=== PATIENT | female | born 1945 | race Caucasian/White ===

== ENCOUNTER 2019-10-17 10:13 | Inpatient (IN) ==
[2019-10-17 10:38] LABS: URINE SOURCE CLEAN CATCH
[2019-10-17 10:51] LABS: BILIRUBIN URINE NEGATIVE (NEGATIVE); COLOR YELLOW; GLUCOSE URINE NEGATIVE (NEGATIVE); KETONE URINE NEGATIVE (NEGATIVE); LEUKOCYTES URINE MODERATE (NEGATIVE); NITRITE URINE NEGATIVE (NEGATIVE); PROTEIN URINE TRACE mg/dL (NEGATIVE); SP GRAVITY URINE 1.038; TURBIDITY URINE CLEAR (CLEAR)
[2019-10-17 11:04] LABS: BLOOD URINE NEGATIVE (NEGATIVE); UROBILINOGEN URINE 3 mg/dL (NORMAL)
[2019-10-17 11:05] LABS: UR EPITHELIAL CELLS >10 /HPF (<10); URINE BACTERIA NEGATIVE /HPF; URINE RBC <10 /HPF (<10)
[2019-10-17] MEDS ORDERED: LEVAQUIN 500 MG/D5W 500 MG/100 ML IVPB IV ONE (11:34)
[2019-10-17] MEDS ORDERED: NS 1,000 ML IV ONE (11:34)
[2019-10-17 12:21] LABS: BASO# 0.02 X1000 (0.0-0.2); BASO% 0.2 % (0.0-0.8); EOS# 0.54 X1000 (0.0-0.7); EOS% 4.6 % (0.0-10.0); HEMATOCRIT 43.8 % (37.0-47.0); HEMOGLOBIN 13.7 g/dL (12.0-16.0); IMM GRAN# 0.08 X1000 (0.0-0.04); IMM GRAN% 0.7 % (0.0-0.5); LYMPH# 1.05 X1000 (1.2-3.4); MCH 27.1 PG (27-31); MCHC 31.3 g/dL (33-37); MCV 86.7 FL (81-99); MONO# 0.72 X1000 (0.11-0.59); MONO% 6.1 % (1.7-9.3); MPV 9.7 FL (7.4-10.4); NEUT# 9.31 X1000 (1.4-6.5); NEUT% 79.4 % (42.2-75.2); PLT 261 X1000 (130-400); RBC 5.05 XMIL (4.2-5.4); RDW 15.5 % (11.5-14.5); WBC 11.72 X1000 (4.8-10.8)
--- NOTE | 2019-10-17 12:50 | Diag Imaging Result Doc PS360 ---
CT ABDOMEN/PELVIS W/O CONTRAST - 10/17/2019 INDICATION: flank pain COMPARISON: 06/11/2017 FINDINGS: There is tree-in-bud nodular infiltrate in both lung bases similar to the prior exam. This is compatible with chronic atypical pneumonia or recurrent aspiration pneumonia. There is a large hiatal hernia similar to prior. There is cardiomegaly. There is severe calcification of the mitral valve annulus. No radiodense renal stones. No hydronephrosis or hydroureter. There are stable cholecystectomy clips. There is severe fatty atrophy of the pancreas. Abdominal organs are otherwise normal. There is moderate diffuse constipation. No bowel obstruction or inflammation. There is severe diverticulosis of the descending and sigmoid colon. Uterus is absent. Urinary bladder and rectum are normal. There is a grossly stable large fat-containing right inguinal hernia. 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 There are moderate degenerative changes of the spine. No acute or suspicious bony lesion. IMPRESSION: 1. Constipation. Diverticulosis coli. 2. Negative for renal stone disease. 3. Chronic atypical pneumonia or aspiration in the lung bases. Cardiomegaly. This exam was performed using automated exposure control, adjustment of mA or kV according to patient size, and/or use of iterative reconstruction technique Electronically signed by Dnog Cutler 10/17/2019 12:48 PM
[2019-10-17 12:52] LABS: AGAP 13; ALB/GLOB RATIO 1.9; ALBUMIN 4.4 g/dL (3.5-5.0); ALKALINE PHOSPHATASE 68 U/L (32-104); BUN 17 mg/dL (8-22); CALCIUM 9.6 mg/dL (8.8-10.2); CHLORIDE 99 mmol/L (98-107); COSMO 278; CREATININE 0.8 mg/dL (0.5-0.9); ESTIMATED GFR > 60; GLUCOSE 113 mg/dL (70-104); GOT 15 U/L (10-30); GPT 13 U/L (10-36); POTASSIUM 4.2 mmol/L (3.5-5.1); SODIUM 138 mmol/L (136-145); TCO2 26 mmol/L (25-35); TOTAL BILIRUBIN 0.27 mg/dL (0.20-1.00); TOTAL PROTEIN 6.7 g/dL (6.3-8.3)
[2019-10-17] MEDS ORDERED: TORADOL IV ONE (13:31)
--- NOTE | 2019-10-17 13:50 | Diag Imaging Result Doc PS360 ---
CHEST-1 VIEW - 10/17/2019 INDICATION: possible pneumonia COMPARISON: 06/29/2019 FINDINGS: Stable cardiomegaly. There are increasing peribronchial markings in both lung bases consistent with bronchitis and probable bronchopneumonia. There is also pulmonary vascular congestion. No pneumothorax or significant pleural effusion. IMPRESSION: Cardiomegaly and pulmonary vascular congestion. Worsening bronchitis and probable mild bronchopneumonia in both lung bases. Electronically signed by Dong Cutler 10/17/2019 1:48 PM
--- NOTE | 2019-10-17 15:41 | PROVIDER DOCUMENTATION ---
This chart was entered by Janet Ackerman Scribe, acting as scribe for Mikal Sandoval MD. HPI-Female /OB/Breast - General Chief Complaint: Flank Pain Stated Complaint: LOWER ABD & BACK PAIN Time Seen by Provider: 10/17/19 11:22 Source: reports: patient Allergies/Adverse Reactions: Patient Allergies Allergy/AdvReac Type Severity Reaction Status Date / Time cefazolin [From Kefzol] Allergy RASH Verified 03/24/18 13:22 Iodinated Contrast Media Allergy RASH Verified 03/24/18 13:22 [IV Dye] metformin Allergy ABDOMINAL Verified 03/24/18 13:22 PAIN Sulfa (Sulfonamide Allergy RASH Verified 03/24/18 13:22 Antibiotics) terbutaline [From Brethine] Allergy RASH Verified 03/24/18 13:22 tetracycline Allergy SHORTNESS Verified 03/24/18 13:22 OF BREATH Home Medications: Home Medication List Medication Instructions Recorded Confirmed Last Taken Type Albuterol 2.5MG/Ipratrop 0.5MG 1 vial INH 4X11/23/17 03/28/18 03/28/18 05:00 History [Duoneb (A & A)] 1 Budesonide/Formoterol Fumarate 2 puff INH BID 11/23/17 03/28/18 03/28/18 05:00 History [Symbicort 160-4.5 Mcg Inhaler] 2 Diltiazem HCl [Diltiazem 24Hr ER 180 mg PO DAILY 11/23/17 03/28/18 03/28/18 05:30 History (LA)] Fluticasone Propionate [Flonase 2 puff NS BID 11/23/17 03/28/18 03/25/18 History Allergy Relief] 2 Losartan Potassium 100 mg PO DAILY 11/23/17 03/28/18 03/27/18 08:00 History 100 Montelukast [Singulair] 10 mg PO DAILY 11/23/17 03/28/18 03/27/18 21:00 History 10 Omeprazole 20 mg PO DAILY 11/23/17 03/28/18 03/28/18 05:30 History 20 Prednisone 5 mg PO DAILY 11/23/17 03/28/18 03/28/18 05:30 History 5 Simvastatin 20 mg PO DAILY 11/23/17 03/28/1818 21:00 History 20 Theophylline E.r. [Fermin-Dur] 300 mg PO DAILY 11/23/17 03/28/18 03/28/18 05:30 History 300 Aspirin 81 mg PO DAILY 11/25/17 03/28/18 03/16/18 History 81 Docusate Sodium [Stool Softener] 100 mg PO BID 03/24/18 03/28/18 03/28/18 05:30 History 100 Ipratropium/Albuterol INH 1 puff INH BID 03/24/18 03/28/18 Unknown History [Combivent Respimat Inhaler] Hydrocodone/APAP 5 mg/325 mg 1 each PO Q4H PRN #20 tablet 03/28/18 Unknown Rx [[place]-5] Ondansetron HCl [Zofran] 4 mg PO Q4H PRN #10 tablet 03/28/18 Unknown Rx - History of Present Illness-Female /OB Nature of Presenting Problem: Patient is a 73 year old female who presents with RLQ abdominal pain. States abdominal pain radiates to bilateral flank. Reports nausea with pain. Denies fe ankur. States she has been taking Keflex TID for 1 week. Does patient report she is ?: No Location of complaint: reports: RLQ Radiation: reports: right flank, left flank Quality of Pain: reports: aching Severity in ED: reports: mild Onset/Duration: reports: 1 week ago Timing: reports: still present, getting worse Context/Activities at Onset: reports: light activity Associated Symptoms: reports: nausea Similar Symptoms Previously?: Yes Recently seen or treated by another doctor?: Yes Review of Systems - Adult - REVIEW OF SYSTEMS - ADULT Constitutional: reports: no symptoms reported Eyes: reports: no symptoms reported Ears, Nose, Mouth & Throat: reports: no symptoms reported Cardiovascular: reports: no symptoms reported Respiratory: reports: no symptoms reported Gastrointestinal: reports: see HPI, abdominal pain (RLQ), nausea. denies: vomiting Genitourinary: reports: see HPI, flank pain (bilateral). denies: hematuria, urinary retention Musculoskeletal: reports: no symptoms reported Integumentary: reports: no symptoms reported Neurological: reports: no symptoms reported Psychiatric: reports: no symptoms reported Endocrine: reports: no symptoms reported Hematologic/Lymphatic: reports: no symptoms reported Allergic/Immunologic: reports: no symptoms reported All Other Systems: Reviewed and Negative Past History - Adult - PAST MEDICAL HISTORY-ADULT Review of Records: reports: Old Records Reviewed, Nursing Assessment Review, Medications Reviewed, Social history reviewed & non-contributory. Major Childhood Illnesses: reports: denies history Cardiovascular: reports: HTN Respiratory: reports: asthma, sleep apnea Gastrointestinal: reports: denies history Obstetrical/Gynecological: reports: denies history Genitourinary: reports: denies history Musculoskeletal: reports: denies history Neurological: reports: denies history Endocrine/Immune: reports: Diabetes Other Conditions: reports: denies history - PRIOR SURGERIES/PROCEDURES Surgical/Procedure History: reports: appendectomy, cholecystectomy, hysterectomy - IMMUNIZATION STATUS Childhood Immunizations: See Nurse Assessment Flu Vaccine: See Nurse Assessment - FAMILY HISTORY Family History: reviewed, not pertinent - SOCIAL HISTORY Smoking: denies Substance Use: denies Living Situation: family Physical Exam-General - PHYSICAL EXAM-ADULT Initial Vital Signs Reviewed: Yes - CONSTITUTIONAL General Appearance: alert, no apparent distress. negative: lethargic - HEAD, EARS, NOSE, MOUTH & THROAT HENMT: normocephalic/atraumatic, moist mucous membranes. negative: angioedema - RESPIRATORY Respiratory: chest non-tender, lungs clear, normal breath sounds. negative: rales - CARDIOVASCULAR Cardiovascular: normal peripheral pulses, regular rate, rhythm. negative: tachycardia - GASTROINTESTINAL (ABDOMEN) Abdominal Exam: normal bowel sounds, soft, tenderness (RUQ and RLQ). negative: distended - MUSCULOSKELETAL Back Exam: CVA tenderness (bilateral). negative: ecchymosis, vertebral tenderness - SKIN Integumentary: normal color, normal turgor, warm/dry. negative: rash - NEUROLOGIC Neurologic: grossly normal. negative: aphasia, facial droop - PSYCHIATRIC Psych/Mental Status: normal mood/affect, oriented x 3. negative: paranoid Progress - PLAN OF CARE/RESULTS Progress/Plan/Lab Results: Vital Signs - 8 hr 10/17/19 10:25 10/17/19 13:38 Temperature 97.8 F 98 F Pulse Rate 84 68 Respiratory Rate 26 H 18 Blood Pressure 160/84 161/79 O2 Sat by Pulse Oximetry 97 98 Laboratory Results - last 24 hr 10/17/19 10/17/19 10/17/19 10:30 12:00 12:00 WBC 11.72 H RBC 5.05 Hgb 13.7 Hct 43.8 MCV 86.7 MCH 27.1 MCHC 31.3 L RDW Std Deviation 15.5 H Plt Count 261 MPV 9.7 Immature Gran % (Auto) 0.7 H Neut % (Auto) 79.4 H Lymph % (Auto) 9.0 L Mower % (Auto) 6.1 Eos % (Auto) 4.6 Baso % (Auto) 0.2 Immature Gran # (Auto) 0.08 H Neut # (Auto) 9.31 H Lymph # (Auto) 1.05 L Mower # (Auto) 0.72 H Eos # (Auto) 0.54 Baso # (Auto) 0.02 Sodium 138 Potassium 4.2 Chloride 99 Carbon Dioxide 26 Anion Gap 13 BUN 17 Creatinine 0.8 Estimated GFR/1.73 m2 > 60 BUN/Creatinine Ratio 21 Glucose 113 H Calculated Osmolality 278 Calcium 9.6 Total Bilirubin 0.27 AST 15 ALT 13 Alkaline Phosphatase 68 Total Protein 6.7 Albumin 4.4 Globulin 2.3 Albumin/Globulin Ratio 1.9 Urine Source CLEAN CATCH Urine Color YELLOW Urine Turbidity CLEAR Urine pH 6.0 Ur Specific [place] 1.038 Urine Protein TRACE A Ur Glucose (Stick) NEGATIVE Ur Ketones (Stick) NEGATIVE Urine Blood NEGATIVE Urine Nitrite NEGATIVE Urine Bilirubin NEGATIVE Urobilinogen Dipstick 3 A Urine Leukocytes MODERATE A Urine WBC (Auto) 10-20 A Urine RBC (Auto) <10 U Epithel Cells (Auto) >10 A Urine Bacteria (Auto) NEGATIVE Orders Category Date Time Status CT ABDOMEN/PELVIS W/O CONTRAST [CT] Stat Exams 10/17/19 11:31 Completed cxr [CHEST-1 VIEW] [RAD] Stat Exams 10/17/19 13:27 Completed BLOOD CULTURE [BLDCUL] Stat Lab 10/17/19 14:43 Ordered CBC WITH ELECTRONIC DIFF [HEME] Stat Lab 10/17/19 12:00 Completed COMPREHENSIVE METABOLIC PANEL [CHEM] Stat Lab 10/17/19 12:00 Completed UA NIMS W/REFLEX CULT [URINALYSIS] Stat Lab 10/17/19 10:30 Completed URINE CULTURE [RM] Routine Lab 10/17/19 12:00 Received 0.9% Sodium Chloride Inj [Ns] 1,000 ml Med 10/17/19 11:34 Discontinued IV 999 mls/hr Ketorolac [Toradol] Med 10/17/19 13:31 Discontinued 15 mg IV NOW ONE Levofloxacin 500 mg/D5w [Levaquin 500 mg/D5w] Med 10/17/19 11:34 Discontinued 500 mg in 100 ml IV NOW Pt admit for pyelonephritis due to failure to treat outpatient. Result Diagrams: 10/17/19 12:00 10/17/19 12:00 - XRAY 1 XRAY Study: Chest Impression: See EMR Report (Signed CHEST-1 VIEW - 10/17/2019 INDICATION: possible pneumonia COMPARISON: 06/29/2019 FINDINGS: Stable cardi omegaly. There are increasing peribronchial markings in both lung bases consistent with bronchitis and probable bronchopneumonia. There is also pulmonary vascular congestion. No pneumothorax or significant pleural effusion. IMPRESSION: Cardiomegaly and pulmonary vascular congestion. Worsening bron chitis and probable mild bronchopneumonia in both lung bases. Electronically signed by Dong Cutler 10/17/2019 1:48 PM 10/17/19 1348 Interpreting Physician: Dong Cutler MD Dictated Date/Time: 10/17/19 1348 cc: Mikal Sandoval MD; Griselda Loyd) - CT/MRI 1 CT Study: Abdomen, Pelvis Impression: See EMR Report ( CT ABDOMEN/PELVIS W/O CONTRAST - 10/17/2019 INDICATION: flank pain COMPARISON: 06/11/2017 FINDINGS: There is tree-in-bud nodular infiltrate in both lung bases similar to the prior exam. This is compatible with chronic atypical pneumonia or recurrent aspiration pneumonia. There is a large hiatal hernia similar to prior. There is cardiomegaly. There is severe calcification of the mitral valve annulus. No radiodense renal stones. No hydronephrosis or hydroureter. There are stable cholecystectomy clips. There is severe fatty atrophy of the pancreas. Abdominal organs are otherwise normal. There is moderate diffuse constipation. No bowel obstruction or inflammation. There is severe diverticulosis of the descending and sigmoid colon. Uterus is absent. Urinary bladder and rectum are normal. There is a grossly stable large fat-containing right inguinal hernia. 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 There are moderate degenerative changes of the spine. No acute or suspicious bony lesion. IMPRESSION: 1. Constipation. Diverticulosis coli. 2. Negative for renal stone disease. 3. Chronic atypical pneumonia or aspiration in the lung bases. Cardiomegaly. This exam was performed using automated exposure control, adjustment of mA or kV according to patient size, and/or use of iterative reconstruction technique Electronically signed by Dong Cutler 10/17/2019 12:48 PM 10/17/19 1248 Interpreting Physician: Dong Cutler MD Dictated Date/Time: 10/17/19 1245 cc: Mikal Sandoval MD; Griselda Loyd) - CONSULTS/PCP/HOSPITALIST Notification #1 *Consult/PCP/Hospitalist*: MARISA Daniels for Hospitalist Time Discussed: 15:34 Reason/Comments: Dr. Sandoval consulted with Frances about patient. Consult Disposition: Will see in ED, Admit Departure - Departure Date of Disposition Decision: 10/17/19 Time of Disposition Decision: 15:35 DIAGNOSIS: Bronchopneumonia, Pyelonephritis Disposition: ADMITTED INPATIENT 09 Certified Medical Emergency: Emergent Condition: Stable Referrals and Follow-Ups: Griselda Loyd CRNP [Primary Care Provider] - - Critical Care Note This patient required my direct & personal management of CC.: No Attestation - Physician/ ADONIS Attestation Patient care was provided by Advanced Practice Provider:: No The physician spent face to face time with patient:: Yes Advanced Practice Provider documentation review:: Supervising physician onsite and consulted in the evaluation and care of this patient. The physician did have a face to face encounter with the patient. This chart was documented by the indicated scribe, (Janet Ackerman Scribe) and accurately reflects the services I performed and decisions made by me, Mikal Sandoval MD, as attested by the provider's signature.
[2019-10-17] MEDS ORDERED: NS 1,000 ML IV SCH (16:00)
[2019-10-17] MEDS ORDERED: TYLENOL PO PRN (17:31)
[2019-10-17] MEDS: CLEOCIN PO SCH (21:03)
[2019-10-17] MEDS: ROBAXIN PO SCH (21:04)
[2019-10-17] MEDS: MIRALAX PO SCH (21:04)
--- NOTE | 2019-10-17 22:14 | HISTORY AND PHYSICAL ---
ADDENDUM: SUBJECTIVE: I have seen and examined Ms. Chi today. Ms. Chi comes from home. was at the bedside. She comes because of abdominal pain, back pain. She was treated for a UTI about a week ago at an outpatient urgent care facility. At the time before I just went in to examine her, she says she received a call that her urine culture was actually negative. She was given a shot of Rocephin about a week ago and was started on Ancef and she has been on that since then. She says she was feeling a lot better until up until yesterday, and started having this remarkable abdominal discomfort, pain, generalized, radiating sometimes to the back. She also has a lot of lower back pain. She has had very minimum stools today. OBJECTIVE: Vital signs: Her vitals have also been reviewed. Physical exam is positive. Abdomen: The abdomen is soft. There is a midline anterior abdominal surgical scar. Bowel sounds are present, but there is tenderness on palpating the entire abdomen. No rebound. No guarding. No organomegaly. Extremities: There is no pedal edema. GEOTECHNICIAN: Patient was awake and alert. There is a slight hernia defect on the right inguinal region. LABORATORY DATA: Has also been reviewed including the CBC and chemistry. No major abnormalities. A CT scan of the abdomen and pelvis with and without contrast shows constipation and diverticulosis. Also negative for renal stones. There is also chronic atypical pneumonia or aspiration in the lung bases and cardiomegaly. ASSESSMENT: 1. Diffuse abdominal pain with almost unremarkable CT scan except for constipation and diverticulosis. I think this is probably more related to her constipation. We are going to address that with bowel regimen, Bentyl and IV Tylenol. We will try to avoid any opioids which will make the constipation worse. 2. Right inguinal hernia. This is easily reducible. 3. Moderate rotary scoliosis of the lumbar spine associated with moderate degenerative spine changes associated with musculoskeletal pain. We will continue with the pain management. 4. Recently treated urinary tract infection. However, the culture has come back negative and urine analysis over here for most part, does not look grossly pathological. 5. Atypical pneumonia. Patient has been started on antimicrobial coverage. Please refer to the details of the history and physical which has been dictated by the BAT BOY/GIRL in the chart. cc: Marco Antonio Galdamez MD
[2019-10-17] MEDS: ZOFRAN IV PRN (22:37)
--- NOTE | 2019-10-18 00:14 | HISTORY AND PHYSICAL ---
ADMITTING PHYSICIAN: Dr. Galdamez. CHIEF COMPLAINT: Flank pain, low back pain. HISTORY OF PRESENT ILLNESS: This is a 73-year-old female with a prior history of diabetes mellitus, diet controlled, hypertension and sleep apnea. She presents to the emergency room complaining of flank pain along with dysuria, frequency and urgency. She states she was evaluated at a walk-in clinic a week ago, given Keflex, which she reports taking and completing the prescription yesterday. She states that symptoms have only increased, therefore, she returned for further evaluation. CT scan of the abdomen and pelvis revealed constipation as well as atypical pneumonia or aspiration in the lung bases. Urine revealed 10 to 20 microscopic white blood cells with greater than 10 epithelial cells with nitrite negative. She was given Toradol as well as Levaquin in the emergency room and she is being admitted for further evaluation. PAST MEDICAL HISTORY: Hypertension, asthma, gastroesophageal reflux disease, hiatal hernia, borderline diabetes. PAST SURGICAL HISTORY: Denies. SOCIAL HISTORY: She denies alcohol, tobacco, or illicit drug use. ALLERGIES: Kefzol, iodinated contrast, sulfa, and Brethine all cause a rash. Tetracycline causes shortness of breath. Metformin with abdominal pain. HOME MEDICATIONS: A list will be obtained by the nursing staff and, once verified, will review and restart as is appropriate. REVIEW OF SYSTEMS: Discussed with patient with pertinent positives stated in the HPI. She denied any syncope or dizziness, any chest pain or palpitations, any shortness of breath, cough, fever, chills, any nausea, vomiting, diarrhea, constipation, any black or bloody vomitus or stools. PHYSICAL EXAMINATION: GENERAL: This is a 73-year-old female who is sitting up on the stretcher in the emergency room in no distress. VITAL SIGNS: Blood pressure is 160/70 with a heart rate of 68, respirations are 18, temperature is 98 degrees oral. Room air saturations are 97% to 98%. HEENT: Head is normocephalic, atraumatic. Mucous membranes are moist. NECK: Supple with trachea midline. CARDIOVASCULAR: Regular rate and rhythm. S1 and S2 appreciated. She has no lower extremity edema. Peripheral pulses are palpable x4 extremities. Calves are nontender bilateral. PULMONARY: Breath sounds are clear with no increased work of breathing noted. Chest rises and falls symmetric with respiration. Chest wall is nontender to palpation. GASTROINTESTINAL: Abdomen is soft with some right lower quadrant tenderness with bowel sounds in all 4 quadrants. GENITOURINARY: She has positive bilateral CVA tenderness. She denies any suprapubic tenderness. SKIN: Warm and dry. NEUROLOGIC: She is alert and oriented x3. LABS: WBC is 11.7 with hemoglobin 13.7, hematocrit 43.8, platelets of 261,000. Sodium 138, potassium 4.2, BUN 17, creatinine 0.8 with a glucose of 113. Urinalysis is positive for 10 to 20 microscopic white blood cells, greater than 10 epithelial cells. Urine culture is pending. Blood cultures are pending. Chest x-ray reveals cardiomegaly and pulmonary vascular congestion with worsening bronchitis and probable mild bronchopneumonia in both lung bases. CT of the abdomen and pelvis revealed constipation, negative for renal stone disease. Chronic atypical pneumonia or aspiration in the lung bases. ASSESSMENT AND PLAN: 1. Bilateral bronchopneumonia. 2. Leukocytosis. 3. Urinary tract infection. 4. Constipation. 5. Gastroesophageal reflux disease. 6. Hypertension. PLAN: The patient will be admitted to the medical floor with routine vital signs. Strict I and O. up in the chair t.i.d. with meals and p.r.n. CBC, BMP in the morning. Levaquin and will add clindamycin to cover for possible aspiration pneumonia. identify her home medications and continue as appropriate. MiraLAX for bowel regimen. For DVT prophylaxis, we will use SCDs and have the patient up in a chair. For GI prophylaxis, PPI. plan was discussed with Dr. Galdamez. Further treatments pending hospital course. Dictated by MARISA Mcfadden for Marco Antonio Galdamez MD cc: MARISA Mcfadden MD [facility]
[2019-10-18] MEDS: ZOFRAN IV PRN (02:29)
[2019-10-18] MEDS: OFIRMEV 1000 MG/ISOTONIC SOLN 1,000 MG/100 ML BOTTLE IV PRN ×3 (02:30→20:29)
[2019-10-18] MEDS: CLEOCIN PO SCH ×4 (02:30→20:28)
[2019-10-18] MEDS: PRILOSEC PO SCH (06:19)
[2019-10-18 07:26] LABS: BASO# 0.02 X1000 (0.0-0.2); BASO% 0.3 % (0.0-0.8); EOS% 6.3 % (0.0-10.0); HEMATOCRIT 41.1 % (37.0-47.0); HEMOGLOBIN 13.2 g/dL (12.0-16.0); IMM GRAN# 0.07 X1000 (0.0-0.04); IMM GRAN% 0.9 % (0.0-0.5); LYMPH# 1.09 X1000 (1.2-3.4); LYMPH% 13.7 % (20.5-51.1); MCH 27.6 PG (27-31); MCHC 32.1 g/dL (33-37); MONO# 0.68 X1000 (0.11-0.59); MONO% 8.6 % (1.7-9.3); MPV 9.7 FL (7.4-10.4); NEUT# 5.57 X1000 (1.4-6.5); NEUT% 70.2 % (42.2-75.2); PLT 232 X1000 (130-400); RBC 4.78 XMIL (4.2-5.4); RDW 15.1 % (11.5-14.5); WBC 7.93 X1000 (4.8-10.8)
[2019-10-18 07:39] LABS: AGAP 13; BUN 11 mg/dL (8-22); CALCIUM 8.7 mg/dL (8.8-10.2); CHLORIDE 97 mmol/L (98-107); COSMO 266; CREATININE 0.8 mg/dL (0.5-0.9); ESTIMATED GFR > 60; GLUCOSE 110 mg/dL (70-104); POTASSIUM 4.1 mmol/L (3.5-5.1); SODIUM 133 mmol/L (136-145); TCO2 23 mmol/L (25-35)
[2019-10-18] MEDS ORDERED: BENTYL IM SCH (09:00)
[2019-10-18] MEDS: COZAAR PO SCH (09:49)
[2019-10-18] MEDS: MIRALAX PO SCH (09:49)
[2019-10-18] MEDS: CULTURELLE PO SCH (09:50)
[2019-10-18] MEDS: NORVASC PO SCH (09:50)
[2019-10-18] MEDS: COREG PO SCH ×2 (09:50→20:28)
[2019-10-18] MEDS: SINGULAIR PO SCH (09:51)
[2019-10-18] MEDS: ROBAXIN PO SCH ×2 (09:51→20:28)
[2019-10-18] MEDS: ZOCOR PO SCH (09:51)
[2019-10-18] MEDS: ASPIRIN PO SCH (09:51)
[2019-10-18] MEDS: PREDNISONE PO SCH (09:51)
[2019-10-18] MEDS: THEO-DUR PO SCH (09:51)
[2019-10-18] MEDS: LACTULOSE PO SCH ×2 (10:00→20:28)
[2019-10-18] MEDS: FLONASE NAS SCH ×2 (10:01→20:29)
[2019-10-18] MEDS: DUONEB (A & A) INH SCH ×3 (10:31→19:55)
[2019-10-18] MEDS: SYMBICORT 160/4.5 MICROGM INHALER INH SCH ×2 (10:31→19:57)
[2019-10-18] MEDS: LEVAQUIN 750 MG/D5W 750 MG/150 ML IVPB IV SCH (14:32)
[2019-10-18] MEDS: BENTYL PO SCH (16:13)
--- NOTE | 2019-10-18 17:44 | PROGRESS NOTE ---
DATE: 10/18/2019 SUBJECTIVE: This morning Ms. Chi refers to be doing fairly better than yesterday. Abdomen feels less puffy, but she has not had any bowel movement yet. OBJECTIVE: Vital Signs: Blood pressure is 132/59, pulse 65, respirations 18, temperature 98.1. General: Ms. Chi is a 73-year-old elderly female. She is in bed in no distress. HEENT: Mucosa is pink and moist. Anicteric and acyanotic. Neck: Supple. Chest: Clear to auscultation. There are no crepitations, no rhonchi. Cardiovascular: Regular rate and rhythm. No murmurs, no rubs, no gallops. GI: Abdomen is soft. There is an old midline anterior surgical scar. Bowel sounds present. No hepatosplenomegaly. DEHYDRATOR TENDER: The patient is awake, alert and oriented. Has no focal neurological deficit. : There is a mild inguinal defect in the right inguinal region. LABORATORY DATA: WBCs 7.93, hemoglobin 13.2, platelet count 232. Chemistry is also reviewed, and for the most part is unremarkable. So far the patient's urine culture is negative. Blood culture is still pending. CURRENT MEDICATIONS: Have all been reviewed. The patient's home medications have also been restarted. ASSESSMENT: 1. Diffuse abdominal pain, most likely secondary to underlying constipation. The patient seems to be feeling much better. Has not had any bowel movement yet. Will continue with a bowel regimen. 2. Right inguinal hernia. 3. Moderate rotary scoliosis of the lumbar spine associated with degenerative spine changes with musculoskeletal pain, improving. Pain is better controlled now. 4. Recently treated urinary tract infection. The patient's urine culture is now negative. 5. Atypical pneumonia on a chest x-ray. The patient is on antimicrobial coverage. 6. History of chronic obstructive pulmonary disease/asthma. The patient's home medications have also been restarted. 7. Hypertension, controlled on losartan and amlodipine. cc: Marco Antonio Galdamez MD
[2019-10-19] MEDS: CLEOCIN PO SCH ×4 (02:59→21:06)
[2019-10-19] MEDS: DUONEB (A & A) INH SCH ×5 (03:40→19:45)
[2019-10-19] MEDS: BENTYL PO SCH ×3 (06:02→16:25)
[2019-10-19] MEDS: PRILOSEC PO SCH (06:02)
--- NOTE | 2019-10-19 07:20 | Diag Imaging Result Doc PS360 ---
EXAM: KUB ABDOMEN HISTORY: sbo/constipation TECHNIQUE: Single view COMPARISON: 06/01/2017 FINDINGS: There is moderate stool in the transverse and distal colon. No bowel obstruction. No organomegaly. The gallbladder has been removed. IMPRESSION: Moderate constipation Electronically signed by Ponce Juan 10/19/2019 7:17 AM
[2019-10-19] MEDS ORDERED: MILK OF MAGNESIA PO ONE (08:01)
[2019-10-19] MEDS ORDERED: DULCOLAX PR ONE (08:01)
[2019-10-19] MEDS: THEO-DUR PO SCH (09:49)
[2019-10-19] MEDS: FLONASE NAS SCH ×2 (09:49→21:06)
[2019-10-19] MEDS: MIRALAX PO SCH (09:49)
[2019-10-19] MEDS: ROBAXIN PO SCH ×2 (09:50→21:06)
[2019-10-19] MEDS: NORVASC PO SCH (09:50)
[2019-10-19] MEDS: SINGULAIR PO SCH (09:50)
[2019-10-19] MEDS: ZOCOR PO SCH (09:50)
[2019-10-19] MEDS: COZAAR PO SCH (09:50)
[2019-10-19] MEDS: ASPIRIN PO SCH (09:50)
[2019-10-19] MEDS: CULTURELLE PO SCH (09:51)
[2019-10-19] MEDS: COREG PO SCH ×2 (09:51→21:06)
[2019-10-19] MEDS: PREDNISONE PO SCH (09:51)
[2019-10-19] MEDS: SYMBICORT 160/4.5 MICROGM INHALER INH SCH ×2 (09:59→19:44)
--- NOTE | 2019-10-19 10:56 | PROGRESS NOTE ---
DATE: 10/19/2019 SUBJECTIVE: Ms. Chi says she is feeling better. They talked about advancing her diet. She has still not had a bowel movement, so we will try some milk of magnesia in addition to her, I think she is getting lactulose and MiraLAX right now. OBJECTIVE: Vital signs: Temperature 98.2 degrees, pulse 96, respirations 17, blood pressure 128/74. HEENT: Pupils are equal and round. Lungs: Clear in all lung pop. Cardiovascular: Regular rhythm and rate without murmur or S3. Abdomen: Soft. Skin: Warm and dry. ASSESSMENT AND PLAN: 1. Diffuse abdominal pain, most likely secondary underlying constipation. We are going to try some milk of magnesia and Dulcolax suppository today in addition to her present bowel regimen. 2. Right inguinal hernia. 3. Moderate rotatory scoliosis of the lumbar spine associated with degenerative spine changes with musculoskeletal pain which apparently is improving. 4. Treated for a urinary tract infection. Urine culture was negative. 5. Atypical pneumonia on chest x-ray. The patient will continue present antibiotic coverage. 6. Chronic obstructive pulmonary disease and asthma. Continue her home medications. It seems her airflow and gas exchange is good. 7. Hypertension. Continue losartan and amlodipine. REVIEW OF HER ORDERS: I will add some milk of magnesia today and a Dulcolax suppository and check with her later this afternoon. She is talking about maybe wanting to go home. cc: Jason Richardson MD
[2019-10-19] MEDS: ZOFRAN IV PRN (11:09)
[2019-10-19] MEDS: LEVAQUIN 750 MG/D5W 750 MG/150 ML IVPB IV SCH (11:11)
[2019-10-19] MEDS: OFIRMEV 1000 MG/ISOTONIC SOLN 1,000 MG/100 ML BOTTLE IV PRN (13:21)
[2019-10-20] MEDS: CLEOCIN PO SCH ×2 (01:43→08:56)
[2019-10-20] MEDS: DUONEB (A & A) INH SCH ×2 (03:30→09:19)
[2019-10-20] MEDS: PRILOSEC PO SCH (06:41)
[2019-10-20] MEDS: BENTYL PO SCH ×2 (06:41→11:19)
[2019-10-20] MEDS: MIRALAX PO SCH (08:55)
[2019-10-20] MEDS: THEO-DUR PO SCH (08:56)
[2019-10-20] MEDS: COREG PO SCH (08:56)
[2019-10-20] MEDS: ZOCOR PO SCH (08:56)
[2019-10-20] MEDS: ROBAXIN PO SCH (08:57)
[2019-10-20] MEDS: ASPIRIN PO SCH (08:57)
[2019-10-20] MEDS: COZAAR PO SCH (08:57)
[2019-10-20] MEDS: FLONASE NAS SCH (08:57)
[2019-10-20] MEDS: PREDNISONE PO SCH (08:57)
[2019-10-20] MEDS: CULTURELLE PO SCH (08:57)
[2019-10-20] MEDS: NORVASC PO SCH (08:57)
[2019-10-20] MEDS: SINGULAIR PO SCH (08:57)
[2019-10-20] MEDS: SYMBICORT 160/4.5 MICROGM INHALER INH SCH (09:19)
[2019-10-20 11:11] VITALS: BP 93/39
[2019-10-20] MEDS: LEVAQUIN 750 MG/D5W 750 MG/150 ML IVPB IV SCH (11:19)
--- NOTE | 2019-10-20 17:54 | DISCHARGE SUMMARY ---
ADMISSION DATE: 10/17/2019 DISCHARGE DATE: 10/20/2019 DISPOSITION: Home. FOLLOW-UP: Ms. Griselda Cody. CONSULTATIONS DURING THIS ADMISSION.: None. IMAGING STUDIES OF SIGNIFICANCE: 1. CT scan did show constipation, diverticulosis, negative for renal stone. 2. X-ray did show cardiomegaly and pulmonary vascular congestion. 3. A repeat KUB showed moderate constipation. ADMISSION DIAGNOSES: 1. Diffuse abdominal pain. 2. Right inguinal ridge hernia. 3. Scoliosis. 4. Recently treated urinary tract infection. 5. Atypical pneumonia. DIAGNOSES AT THE TIME OF DISCHARGE: 1. Diffuse abdominal pain on presentation secondary to constipation. 2. Right inguinal hernia. 3. Moderate rotatory scoliosis of the lumbar spine associated with musculoskeletal pain. 4. Recently treated urinary tract infection. 5. Atypical pneumonia. 6. History of chronic obstructive pulmonary disease/asthma. 7. Hypertension. DISCHARGE MEDICATIONS: 1. Flonase. 2. Losartan mg p.o. daily. 3. Singular 10 mg p.o. daily. 4. Prednisone 5 mg p.o. daily. 5. Simvastatin 20 mg p.o. daily. 6. Theophylline 300 p.o. daily. 7. Symbicort 2 puffs b.i.d. 8. Omeprazole 20 mg p.o. daily. 9. Aspirin 81 mg p.o. daily. 10. Carvedilol 3.125 b.i.d. 11. Meloxicam. 12. Amlodipine 2.5 mg daily. 13. Robaxin 500 me b.i.d. 14. Levaquin 500 b.i.d. for 5 days. PRESENTING COMPLAINT: Lower back pain, flank pain. HISTORY OF PRESENTING COMPLAINT: Ms. Chi is a 73-year-old female who presented to the emergency department because of low back pain. She says she was just recently treated in a walk- in clinic for UTI, was on Keflex. At the time of the admission they had just call her to notify her that the urine sample culture was negative. In any case, Ms. Chi was admitted to the medical floor for further medical evaluation. HOSPITAL COURSE: Ms. Chi was initially kept NPO, was adequately fluid resuscitated. CT scan did show some constipation, so she was placed on bowel regimen, which she responded well throughout the hospital course. Abdominal pain completely resolved. Subsequent KUB did show still some moderate constipation, but remarkably improved. This morning, Ms Chi refers to be feeling a whole lot better. Denies any new pain. She has been tolerating her diet and she has been having regular bowel movement. No abdominal pain. We think Ms. Chi is fairly stable for discharge on her evaluation. She was also picked up on imaging to have atypical pneumonia. She was started on antimicrobial therapy, which she is going to complete a total of 7 days. This morning, her vitals, blood pressure was 93/39, pulse of 72, respiration is 19, temperature 98.5 degrees. She has been up and about. We think she is fairly stable to be discharged. She is going to follow up with her primary care doctor. TIME SPENT: The time spent for discharge is 32 minutes. cc: Marco Antonio Galdamez MD
== END 2019-10-20 13:38 | disposition home or self-care (01) | DRG 391 ==
LOC: ED 10:13 → SUATTDRO 16:26 → 3N 16:26
PROVIDERS: ATTEND Internal Medicine

== ENCOUNTER 2020-02-05 10:26 | Inpatient (IN) ==
[2020-02-05] MEDS ORDERED: SALINE LOCK IV FLUID XX ONE (10:56)
--- NOTE | 2020-02-05 11:18 | Diag Imaging Result Doc PS360 ---
CHEST-1 VIEW - 02/05/2020 INDICATION: asthma and fever COMPARISON: 12/06/2019 FINDINGS: There is mild cardiomegaly. There is significant pulmonary vascular congestion. There are hazy interstitial infiltrates in the lung bases. No pneumothorax or pleural effusion. IMPRESSION: Bibasilar infiltrates compatible with pulmonary edema, although pneumonia is also possible. Cardiomegaly and pulmonary vascular congestion. Electronically signed by Dong Cutler 02/05/2020 11:16 AM
--- NOTE | 2020-02-05 11:19 | Diag Imaging Result Doc PS360 ---
SINUSES TOMAS VIEW ONLY - 02/05/2020 INDICATION: sinusitis TECHNIQUE: COMPARISON: 12/20/2019 FINDINGS: There is essentially complete opacification of the right maxillary sinus which was present previously. The left maxillary sinus appears grossly clear. The frontal sinuses are clear. IMPRESSION: Persistent right maxillary sinusitis. Electronically signed by Dong Cutler 02/05/2020 11:17 AM
[2020-02-05 12:40] LABS: AGAP 14; ALB/GLOB RATIO 1.7; ALKALINE PHOSPHATASE 72 U/L (32-104); BUN 18 mg/dL (8-22); CALCIUM 9.2 mg/dL (8.8-10.2); CHLORIDE 98 mmol/L (98-107); COSMO 274; CREATININE 0.7 mg/dL (0.5-0.9); ESTIMATED GFR > 60; GLUCOSE 141 mg/dL (70-104); GOT 20 U/L (10-30); GPT 14 U/L (10-36); POTASSIUM 4.2 mmol/L (3.5-5.1); SODIUM 135 mmol/L (136-145); TCO2 23 mmol/L (25-35); TOTAL BILIRUBIN 0.31 mg/dL (0.20-1.00); TOTAL PROTEIN 6.4 g/dL (6.3-8.3)
[2020-02-05 13:15] LABS: BASO# 0.03 X1000 (0.0-0.2); BASO% 0.3 % (0.0-0.8); EOS# 0.27 X1000 (0.0-0.7); EOS% 2.3 % (0.0-10.0); HEMATOCRIT 42.4 % (37.0-47.0); HEMOGLOBIN 13.6 g/dL (12.0-16.0); IMM GRAN# 0.07 X1000 (0.0-0.04); IMM GRAN% 0.6 % (0.0-0.5); LYMPH# 0.48 X1000 (1.2-3.4); LYMPH% 4.1 % (20.5-51.1); MCH 27.7 PG (27-31); MCHC 32.1 g/dL (33-37); MCV 86.4 FL (81-99); MONO# 0.77 X1000 (0.11-0.59); MONO% 6.5 % (1.7-9.3); MPV 10.3 FL (7.4-10.4); NEUT# 10.18 X1000 (1.4-6.5); NEUT% 86.2 % (42.2-75.2); PLT 252 X1000 (130-400); RBC 4.91 XMIL (4.2-5.4); RDW 15.1 % (11.5-14.5)
[2020-02-05 13:18] LABS: BANDS 4 % (0-1); LYMPHS 2 % (21-51); MONO 2 % (1-9); SEGS 92 % (42-75)
[2020-02-05] MEDS ORDERED: ZOSYN ONE (14:28)
[2020-02-05] MEDS: DUONEB (A & A) INH SCH ×3 (15:11→23:22)
[2020-02-05] MEDS: ZOSYN 3.375 GM in NS 50 ML IV SCH ×3 (16:04→23:51)
[2020-02-05] MEDS: ZITHROMAX 500 MG/NS 500 MG/250 ML IVPB IV SCH (16:09)
[2020-02-05] MEDS: SOLU-MEDROL IV SCH ×2 (16:09→20:55)
--- NOTE | 2020-02-05 18:33 | HISTORY AND PHYSICAL ---
REASON FOR REQUEST: Asthma exacerbation. HISTORY OF PRESENT ILLNESS: Ms. Chi is a 74-year-old with moderate persistent asthma, hiatal hernia, who has had increasing difficulty with her asthma. The patient was seen 12/07/2019 with facial pressure and sinus films revealed a right maxillary sinusitis. She was initiated on a neti pot and received 20 days of Augmentin. She was having significant difficulty with her asthma at that time and has been on steroids. She was referred to Dr. Paredes for an HEENT evaluation. Despite treatment, she continues to feel poorly. She reports she has had an extremely difficult weekend. She is not sleeping well. She is having increasing nebulizer requirements. She has shortness of breath at rest. She has had low-grade fevers of less than 100. She denies body aches. She denies chills. She has had no known exposure to COVID-19 patients or travel to areas of concern. PAST MEDICAL HISTORY: 1. Asthma. 2. Hiatal hernia. 3. Borderline diabetes mellitus. 4. Sinusitis as per above. 5. Status post cholecystectomy. 6. Status post appendectomy. 7. Status post hysterectomy. ALLERGIES: The patient has multiple drug allergies including Bactrim, Brethine, iodinated contrast, Kefzol, cefdinir, metformin and tetracycline. SOCIAL HISTORY: She is a never smoker. She is . FAMILY HISTORY: Positive for heart disease, tuberculosis, hypertension, strokes, obesity, diabetes, and seizures. REVIEW OF SYSTEMS: As noted in the HPI. PHYSICAL EXAMINATION: GENERAL: Reveals an acutely ill-appearing white female. She has mild increased work of breathing. VITAL SIGNS: Blood pressure 138/88, heart rate 119, respiratory rate 18, oxygen saturation 94%, temperature 99.2 degrees. HEENT: Pupils are equal and reactive. Oropharynx appears clear without lesions or adenopathy. There is mild tenderness over the right maxillary sinus. NECK: Supple. CHEST: Reveals scattered wheezing bilaterally. CARDIAC EXAM: Increased rate regular rhythm. ABDOMEN: Soft. EXTREMITIES: Without edema. LABORATORIES: White blood count 11.80, hemoglobin 13.6, platelet count 252,000. Sodium 135, potassium 4.2, chloride 98, bicarbonate 23, BUN 18, creatinine 0.7, glucose 141. Blood cultures are pending. Influenza screen is negative. IMPRESSION: A 74-year-old with 1. Asthma exacerbation, which has failed outpatient steroids. 2. Maxillary sinusitis. Repeat x-ray today revealed persistent opacification. 3. Low-grade fevers at home. 4. Dyspnea with any exertion. 5. Tachycardia likely related to the acute illness. 6. Borderline diabetes. PLAN: 1. Admit to the hospital for output failed outpatient therapy. 2. Initiate broad-spectrum antibiotics. The patient previously grew Escherichia coli from her sputum and has previously had a methicillin-resistant Staphylococcus aureus pneumonia. 3. Continue bronchodilators and steroids. 4. Anticipate Ears, Nose and Throat evaluation given ongoing difficulty with the right maxillary sinus. cc: MD Griselda Okeefe CRNP MTDD
[2020-02-05 19:35] LABS: URINE SOURCE CLEAN CATCH
[2020-02-05 19:40] LABS: BILIRUBIN URINE NEGATIVE (NEGATIVE); BLOOD URINE TRACE (NEGATIVE); COLOR YELLOW; GLUCOSE URINE NEGATIVE (NEGATIVE); KETONE URINE NEGATIVE (NEGATIVE); LEUKOCYTES URINE MODERATE (NEGATIVE); NITRITE URINE NEGATIVE (NEGATIVE); PH URINE 6.5; PROTEIN URINE NEGATIVE (NEGATIVE); SP GRAVITY URINE 1.015; TURBIDITY URINE CLEAR (CLEAR); UR EPITHELIAL CELLS <10 /HPF (<10); URINE BACTERIA NEGATIVE /HPF; URINE RBC <10 /HPF (<10); URINE WBC <10 /HPF (<10); UROBILINOGEN URINE NORMAL (NORMAL)
[2020-02-05 21:09] LABS: INR 1.02; PROTIME 13.5 Seconds (11.0-16.0); PTT 26.7 Seconds (22.3-41.8)
[2020-02-05 21:40] LABS: CK INDEX 1.2 (0.0-2.5); CK-MB 3.95 ng/mL (0.0-5.0)
[2020-02-06] MEDS: DUONEB (A & A) INH PRN (04:04)
[2020-02-06] MEDS: ZOSYN 3.375 GM in NS 50 ML IV SCH ×3 (05:41→18:31)
[2020-02-06] MEDS: SOLU-MEDROL IV SCH ×3 (05:41→21:08)
[2020-02-06] MEDS: DUONEB (A & A) INH SCH ×5 (07:43→23:13)
[2020-02-06] MEDS: ZITHROMAX 500 MG/NS 500 MG/250 ML IVPB IV SCH (14:32)
--- NOTE | 2020-02-06 15:38 | Diag Imaging Result Doc PS360 ---
CT MAXILLOFACIAL(SINUS) W/O CO - 02/06/2020 INDICATION: persistent sinusitis TECHNIQUE: COMPARISON: None FINDINGS: There is complete opacification of the right maxillary sinus which is clearly chronic. There is also chronic thickening of the vargas of the left maxillary sinus on the left sinus is grossly clear. Ethmoid, sphenoid, and frontal sinuses are clear. Orbits and orbital contents are normal. No bony erosions. IMPRESSION: Complete opacification of the right maxillary sinus compatible with sinusitis. There is evidence of chronic bilateral maxillary sinusitis as well. Electronically signed by Dong Cutler 02/06/2020 3:35 PM
[2020-02-06] MEDS: LYRICA PO SCH (17:24)
[2020-02-06] MEDS: PRILOSEC PO SCH (17:24)
[2020-02-06] MEDS: COZAAR PO SCH (17:24)
--- NOTE | 2020-02-06 19:17 | PULMONOLOGY PROGRESS NOTE ---
DATE: 02/06/2020 SUBJECTIVE: The patient is awake, alert, and conversant. She reports her shortness of breath has diminished. She feels better than yesterday. She continues to have dyspnea with limited movement. OBJECTIVE: Vital Signs: The patient has been afebrile for the last 24 hours. Vital signs are stable. HEENT: Pupils are equal and reactive. Minimal tenderness over the right maxillary sinus. Oropharynx appears clear without significant drainage. Neck: Neck is supple. Chest: Reveals scattered wheezing bilaterally. Cardiac Exam: S1, S2, increased rate. Abdomen: Soft. Extremities: Without edema. IMAGING: CT scan of the sinuses reveals persistent opacification of the right maxillary sinus. LABORATORY DATA: Blood cultures are negative to date. IMPRESSION: A 74-year-old with sinusitis, status asthmaticus, and bibasilar pneumonia, aspiration suspected. PLAN: 1. Continue current antibiotic regimen. 2. Continue steroids and bronchodilators. 3. Case discussed with Dr. Paredes. He will review the current CT scan for recommendations. cc: Grant Golden MD
[2020-02-06] MEDS: SYMBICORT 160/4.5 MICROGM INHALER INH SCH (20:00)
[2020-02-06] MEDS: FLONASE NAS SCH (22:00)
[2020-02-06] MEDS: COREG PO SCH (22:00)
[2020-02-07] MEDS: ZOSYN 3.375 GM in NS 50 ML IV SCH ×5 (01:13→23:40)
[2020-02-07] MEDS: DUONEB (A & A) INH SCH ×5 (03:22→23:52)
[2020-02-07] MEDS: FLONASE NAS SCH ×2 (07:41→20:30)
[2020-02-07] MEDS: SOLU-MEDROL IV SCH ×3 (07:41→20:29)
[2020-02-07 07:43] LABS: BASO# 0.01 X1000 (0.0-0.2); BASO% 0.1 % (0.0-0.8); HEMATOCRIT 41.2 % (37.0-47.0); HEMOGLOBIN 13.1 g/dL (12.0-16.0); IMM GRAN# 0.06 X1000 (0.0-0.04); IMM GRAN% 0.4 % (0.0-0.5); LYMPH# 0.61 X1000 (1.2-3.4); LYMPH% 3.6 % (20.5-51.1); MCH 27.5 PG (27-31); MCHC 31.8 g/dL (33-37); MCV 86.4 FL (81-99); MONO# 0.46 X1000 (0.11-0.59); MONO% 2.7 % (1.7-9.3); MPV 10.1 FL (7.4-10.4); NEUT# 15.88 X1000 (1.4-6.5); NEUT% 93.2 % (42.2-75.2); PLT 266 X1000 (130-400); RBC 4.77 XMIL (4.2-5.4); RDW 14.9 % (11.5-14.5); WBC 17.02 X1000 (4.8-10.8)
--- NOTE | 2020-02-07 07:49 | Diag Imaging Result Doc PS360 ---
EXAM: CHEST-2 VIEWS 02/07/2020 HISTORY: pneumonia TECHNIQUE: PA and lateral chest COMMENT: There is COPD. There is platelike and ill-defined opacity in the lingula and left lower lobe which is slightly worse than on 02/05/2020. There is a hiatal hernia. Compared to 12/06/2019 the opacities on the left are definitely worse although there was some coarse opacity in the left lower lobe at that time and also on 10/31/2019. IMPRESSION: Atelectasis and/or pneumonia superimposed on fibrosis in the left base. Electronically signed by Darryn Dennis 02/07/2020 7:47 AM
[2020-02-07 08:06] LABS: AGAP 14; ALB/GLOB RATIO 1.1; ALBUMIN 3.3 g/dL (3.5-5.0); ALKALINE PHOSPHATASE 62 U/L (32-104); BUN 19 mg/dL (8-22); CALCIUM 8.6 mg/dL (8.8-10.2); CHLORIDE 101 mmol/L (98-107); COSMO 283; CREATININE 0.7 mg/dL (0.5-0.9); ESTIMATED GFR > 60; GLUCOSE 188 mg/dL (70-104); GOT 21 U/L (10-30); GPT 14 U/L (10-36); POTASSIUM 4.1 mmol/L (3.5-5.1); SODIUM 138 mmol/L (136-145); TCO2 23 mmol/L (25-35); TOTAL BILIRUBIN 0.25 mg/dL (0.20-1.00); TOTAL PROTEIN 6.2 g/dL (6.3-8.3)
[2020-02-07] MEDS: DUONEB (A & A) INH PRN (08:14)
[2020-02-07] MEDS: SYMBICORT 160/4.5 MICROGM INHALER INH SCH ×2 (08:32→19:57)
[2020-02-07] MEDS: PRILOSEC PO SCH (09:01)
[2020-02-07] MEDS: ZOCOR PO SCH (09:01)
[2020-02-07] MEDS: SINGULAIR PO SCH (09:01)
[2020-02-07] MEDS: LYRICA PO SCH (09:01)
[2020-02-07] MEDS: COREG PO SCH ×2 (09:01→20:30)
[2020-02-07] MEDS: ASPIRIN PO SCH (09:01)
[2020-02-07] MEDS: CULTURELLE PO SCH (09:02)
[2020-02-07] MEDS: THEO-DUR PO SCH (09:02)
[2020-02-07] MEDS: COZAAR PO SCH (09:02)
--- NOTE | 2020-02-07 11:08 | CONSULTATION ---
DATE OF CONSULTATION: 02/07/2020 HISTORY OF PRESENT ILLNESS: A 74-year-old female known to me, treated with chronic sinusitis. She has been admitted for pneumonia. I have had a discussion with Dr. Golden about the role of the sinus in her pneumonia. We have been treating sinusitis for approximately 6 weeks with p.o. antibiotics. She started with an air-fluid level in the right maxillary sinus. Now, by CT scan, she has an opacified right maxillary sinus. There is some mucosal thickening in the [*] left maxillary sinus as well. PHYSICAL EXAMINATION: With the fiberoptic scope, the right middle meatus is examined. There is some swelling at the uncinate process. There is not any active drainage in the outflow area of the maxillary sinus at this time. There appears to be some purulence within the middle meatus. IMPRESSION: 1. Chronic maxillary sinusitis. 2. Pneumonia. RECOMMENDATION: She is much improved on her medical therapy. We did discuss addressing the sinus while in the hospital. For irrigation or for some type of anterior ethmoidectomy and opening the maxillary ostium, she would require a general anesthetic. We discussed this with anesthesiology. After discussion, we decided that it would be in her best interest to try and delay any operative work on the sinus until the pneumonia is improved. There is also the option of in-office balloon dilation and irrigation of the sinus. I discussed this with Ms. Chi. She is much better from her current medications and if this continues, an in-office balloon dilation is a possibility. We will discuss this with Dr. Golden. At this time, I would recommend continuing current medical care and trying to wait until the pneumonia is better before addressing the right maxillary sinus with a general anesthetic. If she is discharged soon, we could possibly address this in the office much sooner with the balloon dilation. cc: MD Grant Savage MD
[2020-02-07] MEDS ORDERED: VANCOMYCIN IV PER PHARMACY MISC SCH (17:30)
[2020-02-07] MEDS: ZITHROMAX 500 MG/NS 500 MG/250 ML IVPB IV SCH ×2 (17:41)
[2020-02-07] MEDS ORDERED: VANCOMYCIN 1,900 MG in NS 500 ML IV ONE (18:00)
[2020-02-07] MEDS ORDERED: VANCOMYCIN 1,550 MG in NS 250 ML IV ONE (18:02)
--- NOTE | 2020-02-07 21:57 | PULMONOLOGY PROGRESS NOTE ---
DATE: 02/07/2020 SUBJECTIVE: The patient is awake, alert, and conversant. Dr. Paredes evaluated her earlier. He reported some drainage from her sinus, but it appeared to be minimal. OBJECTIVE: Vital Signs: The patient has been afebrile for the last 24 hours. Blood pressure 127/77, heart rate 103, respiratory rate 17, oxygen saturation 98%. HEENT: Pupils are equal and reactive. Oropharynx appears clear. Neck: Supple. Chest: rhonchi and wheezing Abdomen: Soft. Extremities: Without edema. LABORATORIES: White blood count 17.02, hemoglobin 13.1, platelet count 266,000. IMAGING: Chest x-ray reveals increased infiltrate at the left base. IMPRESSION: A 74-year-old with: 1. Status asthmaticus. 2. Sinusitis. 3. Pneumonia. 4. Worsening chest x-ray. PLAN: 1. We will add coverage for MRSA. 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 2. Continue steroids and bronchodilators. 3. After discussion with Dr. Paredes, plan is to continue current treatment until she has clinical improvement. When she has clinical improvement, she will be re-evaluated in his office for possible balloon dilation of the sinus. He is reluctant to take her to the operating room for general anesthesia. cc: Grant Golden MD [facility]
[2020-02-08] MEDS: SOLU-MEDROL IV SCH ×3 (06:09→21:14)
[2020-02-08] MEDS: ZOSYN 3.375 GM in NS 50 ML IV SCH ×3 (06:10→18:15)
[2020-02-08] MEDS: SYMBICORT 160/4.5 MICROGM INHALER INH SCH ×2 (07:58→19:53)
[2020-02-08] MEDS: DUONEB (A & A) INH SCH ×5 (07:58→23:51)
[2020-02-08] MEDS: THEO-DUR PO SCH (08:51)
[2020-02-08] MEDS: ASPIRIN PO SCH (08:51)
[2020-02-08] MEDS: PRILOSEC PO SCH (08:51)
[2020-02-08] MEDS: COZAAR PO SCH (08:51)
[2020-02-08] MEDS: ZOCOR PO SCH (08:51)
[2020-02-08] MEDS: SINGULAIR PO SCH (08:51)
[2020-02-08] MEDS: LYRICA PO SCH (08:51)
[2020-02-08] MEDS: CULTURELLE PO SCH (08:51)
[2020-02-08] MEDS: COREG PO SCH ×2 (08:51→21:14)
[2020-02-08] MEDS: FLONASE NAS SCH ×2 (08:52→21:14)
[2020-02-08] MEDS: ZITHROMAX 500 MG/NS 500 MG/250 ML IVPB IV SCH (15:13)
[2020-02-08] MEDS: VANCOMYCIN 1,200 MG in NS 250 ML IV SCH (21:13)
--- NOTE | 2020-02-08 21:26 | PULMONOLOGY PROGRESS NOTE ---
DATE: 02/08/2020 SUBJECTIVE: The patient is awake, alert, and conversant. She has had a long day. She reports her breathing has marginally improved but she does have significant fatigue. OBJECTIVE: Vital Signs: The patient has been afebrile for the last 24 hours. Blood pressure 125/80, heart rate 90, respiratory rate 16, oxygen saturation 98%. HEENT: Pupils are equal and reactive. Oropharynx appears clear. Neck: Supple. Chest: Reveals scattered wheezing and rhonchi bilaterally. Cardiac: S1-S2. Abdomen: Soft. LABORATORIES: No new microbiology data. IMPRESSION: A 74-year-old with: 1. Status asthmaticus. 2. Sinusitis. 3. Pneumonia. PLAN: 1. Continue bronchodilators. 2. Continue current steroid regimen. 3. Continue current antibiotic regimen which was expanded yesterday. 4. Anticipate re-evaluation in Dr. Paredes's office as an outpatient to consider balloon dilation of her maxillary sinus entrance. 5. Follow up laboratories and chest x-ray tomorrow. cc: Grant Golden MD
[2020-02-09] MEDS: ZOSYN 3.375 GM in NS 50 ML IV SCH ×4 (01:40→20:22)
[2020-02-09] MEDS: SOLU-MEDROL IV SCH ×3 (06:45→20:22)
[2020-02-09 07:18] LABS: BASO# 0.01 X1000 (0.0-0.2); BASO% 0.1 % (0.0-0.8); HEMATOCRIT 38.3 % (37.0-47.0); IMM GRAN# 0.06 X1000 (0.0-0.04); IMM GRAN% 0.5 % (0.0-0.5); LYMPH# 0.41 X1000 (1.2-3.4); LYMPH% 3.2 % (20.5-51.1); MCHC 31.3 g/dL (33-37); MCV 86.1 FL (81-99); MONO% 3.1 % (1.7-9.3); MPV 9.9 FL (7.4-10.4); NEUT# 12.06 X1000 (1.4-6.5); NEUT% 93.1 % (42.2-75.2); PLT 244 X1000 (130-400); RBC 4.45 XMIL (4.2-5.4); RDW 14.6 % (11.5-14.5); WBC 12.94 X1000 (4.8-10.8)
[2020-02-09 07:25] LABS: AGAP 11; ALB/GLOB RATIO 1.3; ALBUMIN 3.2 g/dL (3.5-5.0); ALKALINE PHOSPHATASE 51 U/L (32-104); BUN 20 mg/dL (8-22); CALCIUM 8.7 mg/dL (8.8-10.2); CHLORIDE 101 mmol/L (98-107); COSMO 286; CREATININE 0.7 mg/dL (0.5-0.9); ESTIMATED GFR > 60; GLUCOSE 202 mg/dL (70-104); GOT 15 U/L (10-30); GPT 16 U/L (10-36); MAGNESIUM 2.2 mg/dL (1.5-2.7); PHOSPHORUS 3.7 mg/dL (2.7-4.5); POTASSIUM 3.9 mmol/L (3.5-5.1); SODIUM 139 mmol/L (136-145); TCO2 27 mmol/L (25-35); TOTAL BILIRUBIN 0.27 mg/dL (0.20-1.00); TOTAL PROTEIN 5.7 g/dL (6.3-8.3)
[2020-02-09 07:32] LABS: LYMPHS 2 % (21-51); MONO 2 % (1-9); SEGS 96 % (42-75)
--- NOTE | 2020-02-09 08:17 | Diag Imaging Result Doc PS360 ---
EXAM: CHEST-2 VIEWS HISTORY: pneumonia TECHNIQUE: Two views COMPARISON: 02/07/2020 FINDINGS: The lungs are hyperexpanded with an increased AP diameter to the chest. Heart is borderline mildly prominent. There are infiltrates and atelectasis in the left lower lobe and there are small bilateral pleural effusions there is also small hiatal hernia. IMPRESSION: Persistent left basilar atelectasis and infiltrates. Electronically signed by Ponce Juan 02/09/2020 8:14 AM
[2020-02-09] MEDS: ASPIRIN PO SCH (08:18)
[2020-02-09] MEDS: COREG PO SCH ×2 (08:18→20:22)
[2020-02-09] MEDS: CULTURELLE PO SCH (08:18)
[2020-02-09] MEDS: FLONASE NAS SCH ×2 (08:18→20:23)
[2020-02-09] MEDS: COZAAR PO SCH (08:18)
[2020-02-09] MEDS: SINGULAIR PO SCH (08:18)
[2020-02-09] MEDS: LYRICA PO SCH (08:18)
[2020-02-09] MEDS: THEO-DUR PO SCH (08:18)
[2020-02-09] MEDS: PRILOSEC PO SCH (08:18)
[2020-02-09] MEDS: ZOCOR PO SCH (08:18)
[2020-02-09] MEDS: SYMBICORT 160/4.5 MICROGM INHALER INH SCH ×2 (08:27→19:28)
[2020-02-09] MEDS: DUONEB (A & A) INH SCH ×5 (08:27→23:23)
[2020-02-09] MEDS: ZITHROMAX 500 MG/NS 500 MG/250 ML IVPB IV SCH (16:29)
[2020-02-09] MEDS: VANCOMYCIN 1,200 MG in NS 250 ML IV SCH (21:16)
[2020-02-10] MEDS: ZOSYN 3.375 GM in NS 50 ML IV SCH ×4 (02:59→20:38)
[2020-02-10] MEDS: DUONEB (A & A) INH PRN (04:01)
--- NOTE | 2020-02-10 04:11 | PULMONOLOGY PROGRESS NOTE ---
DATE: 02/09/2020 SUBJECTIVE: The patient is awake and alert. She reports her breathing continues to improve. OBJECTIVE: Vital Signs: The patient has been afebrile for the last 24 hours. Blood pressure 136/79, heart rate 98, respiratory rate 16, oxygen saturation 97% on 2 L per nasal cannula. HEENT: Pupils are equal and reactive. Oropharynx appears clear. Neck: Supple. Chest: Reveals scattered wheezing and rhonchi bilaterally. She has significantly more air flow than yesterday. Abdomen: Soft. Extremities: Reveal trace to 1+ peripheral edema. LABORATORIES: Sodium 139, potassium 3.9, chloride 101, bicarbonate 27, BUN 20, creatinine 0.7, albumin 5.7, globulin 3.2. Immunoglobulin level shows mild reduction in IgG level at 694. Chest x-ray reveals no change in the left basilar infiltrate. IMPRESSION: A 74-year-old with: 1. Asthma exacerbation. 2. Left lower lobe pneumonia. 3. Sinusitis. DISCUSSION: A 74-year-old with problems outlined above. She continues to slowly improve. Breath sounds are significantly improved today. She is more productive and as the bronchospasm clears hopefully she will be able to clear this left basilar pneumonia. PLAN: 1. Continue bronchodilators. 2. Continue current antibiotic and steroid regimen. 3. Follow up chest x-ray on Wednesday morning. cc: Grant Golden MD
[2020-02-10] MEDS: SOLU-MEDROL IV SCH ×2 (05:16→20:37)
[2020-02-10] MEDS ORDERED: LASIX IV ONE (06:00)
[2020-02-10] MEDS: DUONEB (A & A) INH SCH ×5 (08:05→23:41)
[2020-02-10] MEDS: SYMBICORT 160/4.5 MICROGM INHALER INH SCH ×2 (08:05→20:13)
[2020-02-10] MEDS: CULTURELLE PO SCH (08:47)
[2020-02-10] MEDS: PRILOSEC PO SCH (08:47)
[2020-02-10] MEDS: ASPIRIN PO SCH (08:47)
[2020-02-10] MEDS: COZAAR PO SCH (08:48)
[2020-02-10] MEDS: ZOCOR PO SCH (08:48)
[2020-02-10] MEDS: COREG PO SCH ×2 (08:48→20:38)
[2020-02-10] MEDS: SINGULAIR PO SCH (08:48)
[2020-02-10] MEDS: THEO-DUR PO SCH (08:48)
[2020-02-10] MEDS: FLONASE NAS SCH ×2 (08:49→20:38)
[2020-02-10] MEDS: LYRICA PO SCH (08:56)
[2020-02-10] MEDS: VANCOMYCIN 1,200 MG in NS 250 ML IV SCH (20:38)
[2020-02-10] MEDS: ZITHROMAX 500 MG/NS 500 MG/250 ML IVPB IV SCH (21:25)
--- NOTE | 2020-02-10 21:44 | PULMONOLOGY PROGRESS NOTE ---
DATE: 02/10/2020 SUBJECTIVE: The patient is awake and alert. She reports her breathing has improved some today. OBJECTIVE: Vital Signs: Patient has been afebrile for the last 24 hours. Blood pressure 143/73, heart rate 102, respiratory rate 17, oxygen saturation 93% on room air. HEENT: Pupils are equal and reactive. Oropharynx clear. Neck: Supple. Chest: Reveals better air flow bilaterally with scattered wheezing. There is crackles at the left base. Cardiac: S1, S2. Abdomen: Soft. Extremities: Without edema. IMPRESSION: 74-year-old with 1. Asthma exacerbation. 2. Left lower lobe pneumonia. 3. Sinusitis. PLAN: 1. Continue bronchodilators. 2. Continue current antibiotics and steroids. 3. Follow up chemistries and chest x-ray tomorrow. cc: Grant Golden MD
[2020-02-11] MEDS: ZOSYN 3.375 GM in NS 50 ML IV SCH ×4 (02:55→23:14)
[2020-02-11] MEDS: SOLU-MEDROL IV SCH ×3 (03:06→20:29)
[2020-02-11] MEDS: DUONEB (A & A) INH SCH ×6 (03:08→23:20)
[2020-02-11] MEDS: SYMBICORT 160/4.5 MICROGM INHALER INH SCH ×2 (07:48→19:46)
[2020-02-11 07:49] LABS: AGAP 13; ALB/GLOB RATIO 1.6; ALBUMIN 3.3 g/dL (3.5-5.0); ALKALINE PHOSPHATASE 48 U/L (32-104); BUN 21 mg/dL (8-22); CALCIUM 8.7 mg/dL (8.8-10.2); CHLORIDE 99 mmol/L (98-107); COSMO 286; CREATININE 0.8 mg/dL (0.5-0.9); ESTIMATED GFR > 60; GLUCOSE 230 mg/dL (70-104); GOT 12 U/L (10-30); GPT 15 U/L (10-36); MAGNESIUM 2.1 mg/dL (1.5-2.7); POTASSIUM 3.8 mmol/L (3.5-5.1); SODIUM 138 mmol/L (136-145); TCO2 26 mmol/L (25-35); TOTAL BILIRUBIN 0.44 mg/dL (0.20-1.00); TOTAL PROTEIN 5.3 g/dL (6.3-8.3)
[2020-02-11 07:51] LABS: BASO# 0.01 X1000 (0.0-0.2); BASO% 0.1 % (0.0-0.8); EOS# 0.04 X1000 (0.0-0.7); EOS% 0.3 % (0.0-10.0); HEMATOCRIT 39.6 % (37.0-47.0); HEMOGLOBIN 12.9 g/dL (12.0-16.0); IMM GRAN# 0.09 X1000 (0.0-0.04); IMM GRAN% 0.8 % (0.0-0.5); LYMPH# 0.36 X1000 (1.2-3.4); LYMPH% 3.1 % (20.5-51.1); MCH 27.7 PG (27-31); MCHC 32.6 g/dL (33-37); MONO# 0.26 X1000 (0.11-0.59); MONO% 2.2 % (1.7-9.3); MPV 10.2 FL (7.4-10.4); NEUT# 11.03 X1000 (1.4-6.5); NEUT% 93.5 % (42.2-75.2); PLT 234 X1000 (130-400); RBC 4.66 XMIL (4.2-5.4); RDW 14.2 % (11.5-14.5); WBC 11.79 X1000 (4.8-10.8)
[2020-02-11] MEDS: ZOCOR PO SCH (08:08)
[2020-02-11] MEDS: LYRICA PO SCH (08:08)
[2020-02-11] MEDS: PRILOSEC PO SCH (08:08)
[2020-02-11] MEDS: COZAAR PO SCH (08:08)
[2020-02-11] MEDS: SINGULAIR PO SCH (08:08)
[2020-02-11] MEDS: THEO-DUR PO SCH (08:08)
[2020-02-11] MEDS: COREG PO SCH ×2 (08:09→20:31)
[2020-02-11] MEDS: CULTURELLE PO SCH (08:09)
[2020-02-11] MEDS: FLONASE NAS SCH ×2 (08:09→20:31)
[2020-02-11] MEDS: ASPIRIN PO SCH (08:09)
--- NOTE | 2020-02-11 08:36 | Diag Imaging Result Doc PS360 ---
CHEST-2 VIEWS - 02/11/2020 INDICATION: pneumonia COMPARISON: 02/09/2020 FINDINGS: There is continued improvement in the left basilar infiltrate. There are trace bibasilar pleural effusions similar to prior. Stable cardiomegaly. IMPRESSION: Continued improvement in the left basilar infiltrate. Trace bilateral pleural effusions. Electronically signed by Dong Cutler 02/11/2020 8:34 AM
[2020-02-11] MEDS: ZITHROMAX 500 MG/NS 500 MG/250 ML IVPB IV SCH (14:00)
[2020-02-11] MEDS: VANCOMYCIN 1,500 MG in NS 250 ML IV SCH (20:29)
--- NOTE | 2020-02-11 21:00 | PULMONOLOGY PROGRESS NOTE ---
DATE: 02/11/2020 SUBJECTIVE: The patient is awake and alert. She feels better today. She has minimal sputum production. Shortness of breath has diminished. OBJECTIVE: Vital Signs: The patient has been afebrile for the last 24 hours. Blood pressure 141/78, heart rate 89, respiratory rate 20, oxygen saturation 99% on room air. HEENT: Pupils are equal and reactive. Oropharynx appears clear. Neck: Supple. Chest: Reveals occasional rhonchi bilaterally with crackles at the left base. Cardiac exam: S1-S2. Abdomen: Soft. Extremities: Without edema. LABORATORIES: Chest x-ray reveals improving infiltrate at the left lung base. No new microbiology data. White blood count 11.79, hemoglobin 12.9, platelet count 234,000. IMPRESSION: 74-year-old with 1. Asthma exacerbation. 2. Left lower lobe pneumonia. 3. Sinusitis. DISCUSSION: 74-year-old problems outlined above. The patient continues to improve. PLAN: 1. Continue bronchodilators. 2. Continue current antibiotic and steroids. 3. The patient is having some intertriginous yeast infection. She will be receiving topical cream. cc: Grant Golden MD
[2020-02-12] MEDS: DUONEB (A & A) INH PRN (04:09)
[2020-02-12] MEDS: ZOSYN 3.375 GM in NS 50 ML IV SCH ×4 (05:13→23:40)
[2020-02-12] MEDS: SOLU-MEDROL IV SCH ×3 (05:13→21:28)
[2020-02-12] MEDS: DUONEB (A & A) INH SCH ×5 (08:05→23:11)
[2020-02-12] MEDS: SYMBICORT 160/4.5 MICROGM INHALER INH SCH ×2 (08:05→20:08)
[2020-02-12] MEDS: LYRICA PO SCH (08:29)
[2020-02-12] MEDS: FLONASE NAS SCH ×2 (08:29→21:29)
[2020-02-12] MEDS: PRILOSEC PO SCH (08:29)
[2020-02-12] MEDS: ZOCOR PO SCH (08:30)
[2020-02-12] MEDS: COREG PO SCH ×2 (08:30→21:28)
[2020-02-12] MEDS: ASPIRIN PO SCH (08:30)
[2020-02-12] MEDS: SINGULAIR PO SCH (08:30)
[2020-02-12] MEDS: COZAAR PO SCH (08:30)
[2020-02-12] MEDS: CULTURELLE PO SCH (08:30)
[2020-02-12] MEDS: THEO-DUR PO SCH (08:30)
[2020-02-12] MEDS: MYCOSTATIN CREAM TOP SCH ×3 (11:42→17:28)
[2020-02-12] MEDS: VANCOMYCIN 1,500 MG in NS 250 ML IV SCH (13:34)
[2020-02-12] MEDS: ZITHROMAX 500 MG/NS 500 MG/250 ML IVPB IV SCH (15:49)
--- NOTE | 2020-02-13 02:01 | PULMONOLOGY PROGRESS NOTE ---
DATE: 02/12/2020 SUBJECTIVE: The patient is awake, alert and conversant. She reports some fatigue, but reports her shortness of breath is decreasing. OBJECTIVE: Vital Signs: The patient has been afebrile for the last 24 hours. Blood pressure is 127/92, heart rat 92, respiratory rate 18, oxygen saturation is 97% on room air. HEENT: Pupils are equal and reactive. Oropharynx appears clear Neck: Supple. Chest: Reveals faint wheezing bilaterally. Cardiac: S1, S2. Abdomen: Soft. Extremities: Without edema. IMPRESSION: A 74-year-old with: 1. Asthma exacerbation with continued wheezing. 2. Sinusitis. 3. Left lower lobe pneumonia. 4. Yeast infection. PLAN: 1. Continue current bronchodilators. 2. Transition to oral steroids. 3. Discontinue azithromycin. 4. Continue vancomycin and Zosyn. 5. Follow up chest x-ray planned for Wednesday and hopefully she can be discharged on that day if she continues to improve. cc: Grant Golden MD
[2020-02-13] MEDS: DUONEB (A & A) INH PRN (03:18)
[2020-02-13] MEDS: ZOSYN 3.375 GM in NS 50 ML IV SCH ×4 (06:18→23:30)
[2020-02-13] MEDS: SYMBICORT 160/4.5 MICROGM INHALER INH SCH ×2 (07:37→20:37)
[2020-02-13] MEDS: DUONEB (A & A) INH SCH ×5 (07:37→23:04)
[2020-02-13] MEDS: VANCOMYCIN 1,500 MG in NS 250 ML IV SCH (08:10)
[2020-02-13] MEDS: COZAAR PO SCH (08:11)
[2020-02-13] MEDS: ASPIRIN PO SCH (08:11)
[2020-02-13] MEDS: LYRICA PO SCH (08:11)
[2020-02-13] MEDS: THEO-DUR PO SCH (08:11)
[2020-02-13] MEDS: COREG PO SCH ×2 (08:11→20:51)
[2020-02-13] MEDS: CULTURELLE PO SCH (08:11)
[2020-02-13] MEDS: SINGULAIR PO SCH (08:11)
[2020-02-13] MEDS: PRILOSEC PO SCH (08:12)
[2020-02-13] MEDS: ZOCOR PO SCH (08:12)
[2020-02-13] MEDS: FLONASE NAS SCH ×2 (08:20→20:54)
[2020-02-13] MEDS: MYCOSTATIN CREAM TOP SCH ×3 (08:21→17:44)
[2020-02-13] MEDS: PREDNISONE PO SCH (08:27)
--- NOTE | 2020-02-13 23:31 | PULMONOLOGY PROGRESS NOTE ---
DATE: 02/13/2020 SUBJECTIVE: The patient is awake and alert. She reports her sputum production has decreased. She is able to ambulate short distances before she develops shortness of breath. OBJECTIVE: Vital Signs: The patient has been afebrile for the last 24 hours. Blood pressure 123/72, heart rate 85, respiratory rate 18, oxygen saturation 93% on room air. HEENT: Pupils are equal and reactive. Oropharynx appears clear. Neck: Supple. Chest: Reveals wheezing bilaterally but better air flow compared to the day before. Abdomen: Soft. Extremities: Without edema. LABORATORIES: No new chemistries or CBC today. IMPRESSION: A 74-year-old with 1. Asthma exacerbation with slow improvement. 2. Sinusitis. 3. Left lower lobe pneumonia. PLAN: 1. Continue oral steroids. 2. Continue vancomycin and Zosyn. 3. Follow up chest x-ray tomorrow along with sinus films. Hopefully, she has approached discharge criteria. cc: Grant Golden MD
[2020-02-14] MEDS: VANCOMYCIN 1,500 MG in NS 250 ML IV SCH (01:30)
[2020-02-14] MEDS: DUONEB (A & A) INH PRN (03:45)
[2020-02-14] MEDS: ZOSYN 3.375 GM in NS 50 ML IV SCH ×2 (05:26→12:43)
[2020-02-14 06:50] LABS: BASO# 0.02 X1000 (0.0-0.2); BASO% 0.1 % (0.0-0.8); EOS# 0.25 X1000 (0.0-0.7); EOS% 1.7 % (0.0-10.0); HEMOGLOBIN 11.8 g/dL (12.0-16.0); IMM GRAN# 0.36 X1000 (0.0-0.04); IMM GRAN% 2.5 % (0.0-0.5); LYMPH# 1.03 X1000 (1.2-3.4); LYMPH% 7.2 % (20.5-51.1); MCH 27.5 PG (27-31); MCHC 31.9 g/dL (33-37); MCV 86.2 FL (81-99); MONO# 0.79 X1000 (0.11-0.59); MONO% 5.5 % (1.7-9.3); NEUT# 11.84 X1000 (1.4-6.5); PLT 225 X1000 (130-400); RBC 4.29 XMIL (4.2-5.4); RDW 14.2 % (11.5-14.5); WBC 14.29 X1000 (4.8-10.8)
[2020-02-14 07:25] LABS: AGAP 10; ALB/GLOB RATIO 1.7; ALKALINE PHOSPHATASE 44 U/L (32-104); BUN 18 mg/dL (8-22); CALCIUM 8.4 mg/dL (8.8-10.2); CHLORIDE 102 mmol/L (98-107); COSMO 280; CREATININE 0.8 mg/dL (0.5-0.9); ESTIMATED GFR > 60; GLUCOSE 138 mg/dL (70-104); GOT 14 U/L (10-30); GPT 17 U/L (10-36); MAGNESIUM 1.9 mg/dL (1.5-2.7); POTASSIUM 3.5 mmol/L (3.5-5.1); SODIUM 138 mmol/L (136-145); TCO2 26 mmol/L (25-35); TOTAL BILIRUBIN 0.38 mg/dL (0.20-1.00); TOTAL PROTEIN 4.8 g/dL (6.3-8.3)
[2020-02-14] MEDS: DUONEB (A & A) INH SCH ×2 (07:39→11:08)
[2020-02-14] MEDS: SYMBICORT 160/4.5 MICROGM INHALER INH SCH (07:39)
[2020-02-14] MEDS: LYRICA PO SCH (08:09)
[2020-02-14] MEDS: CULTURELLE PO SCH (08:09)
[2020-02-14] MEDS: SINGULAIR PO SCH (08:09)
[2020-02-14] MEDS: ZOCOR PO SCH (08:09)
[2020-02-14] MEDS: PRILOSEC PO SCH (08:09)
[2020-02-14] MEDS: PREDNISONE PO SCH (08:10)
[2020-02-14] MEDS: COREG PO SCH (08:10)
[2020-02-14] MEDS: THEO-DUR PO SCH (08:10)
[2020-02-14] MEDS: COZAAR PO SCH (08:10)
[2020-02-14] MEDS: ASPIRIN PO SCH (08:10)
--- NOTE | 2020-02-14 08:14 | Diag Imaging Result Doc PS360 ---
EXAM: CHEST-2 VIEWS 02/14/2020 HISTORY: pneumonia TECHNIQUE: PA and lateral chest COMMENT: There is a large hiatal hernia. There are bilateral pleural effusions. There is platelike atelectasis in the left lower lobe and lingula. Compared to 02/11/2020 there has been no appreciable change. IMPRESSION: Pleural effusions and atelectasis versus pneumonia in the left base. Electronically signed by Darryn Dennis 02/14/2020 8:12 AM
--- NOTE | 2020-02-14 08:15 | Diag Imaging Result Doc PS360 ---
EXAM: SINUSES 02/14/2020 HISTORY: sinusitis TECHNIQUE: Sinus series 3 views COMMENT: There is mucosal thickening and fluid in the right maxillary sinus. This has improved slightly since 02/05/2020. The left maxillary sinus is also clearer than it was. IMPRESSION: Improved maxillary sinusitis. Electronically signed by Darryn Dennis 02/14/2020 8:13 AM
[2020-02-14] MEDS: FLONASE NAS SCH (08:25)
[2020-02-14] MEDS: MYCOSTATIN CREAM TOP SCH ×2 (08:26→13:37)
[2020-02-14 11:25] VITALS: BP 126/75
--- NOTE | 2020-02-14 13:16 | DISCHARGE SUMMARY ---
ADMISSION DATE: 02/05/2020 DISCHARGE DATE: 02/14/2020 DISCHARGE DIAGNOSES: 1. Left lower lobe pneumonia. 2. Acute sinusitis. 3. Asthma exacerbation. DISCHARGE MEDICATIONS: 1. Albuterol and Atrovent nebulizer. 2. Aspirin 81 mg. 3. Symbicort 60/4.5. 4. Carvedilol. 5. Flonase. 6. Probiotic. 7. Losartan. 8. Singulair. 9. Nystatin cream. 10. Prilosec. 11. Prednisone 20 mg tablets 2 p.o. each day. 12. Pregabalin. 13. Simvastatin. 14. Theophylline 300 mg each day. 15. Clindamycin 150 mg 1 p.o. 4 times a day for 14 days. HOSPITAL COURSE: The patient was admitted to the hospital with a severe asthma exacerbation, left lower lobe pneumonia, and acute sinusitis. The patient was initiated on Zosyn and azithromycin. She continued to have leukocytosis without improvement in symptoms despite steroids and nebulizer treatments. Vancomycin was subsequently added to her regimen. The patient was evaluated by Dr. Americo Paredes. He felt that her sinus could not be dilated in the hospital and that would require a surgical procedure. We both agree that she was not a great candidate for a surgical procedure at this time. The plan is to continue antibiotics and steroids, and with improvement, to be re- evaluated in his office. That currently may be an issue with his office being closed due to the current pandemic. The patient's chest x-ray continued to improve during her hospital stay but she did have some residual changes at the left base. A CT scan of the sinuses was performed which revealed continued opacification of the right maxillary sinus, consistent with acute sinusitis but there was also evidence of chronic bilateral maxillary sinusitis. The sinus x-ray on the day of discharge revealed marginal improvement with increased aeration. The patient will be discharged on her routine medications including clindamycin and prednisone. There is a concern that this may represent staphylococcus, although Staphylococcus aureus was not identified. The patient cannot tolerate doxycycline or Bactrim. She will follow up in my office in 3 weeks or notify me if her condition does not continue to improve. cc: MD Katie Okeefe CRNP [facility], MD
== END 2020-02-14 15:09 | disposition home or self-care (01) | DRG 202 ==
LOC: DIRADM 10:26 → EDIPHOLD 10:38 → 3N 13:55
PROVIDERS: ADMIT Internal Medicine Pulmonary Disease; ATTEND Internal Medicine Pulmonary Disease